=== PATIENT | female | born 1980 | race Two or more races ===

== ENCOUNTER 2020-03-01 03:01 | Emergency (ER) | payer OTHER ==
[~2020-03-01] VITALS: Ht 154.9 cm; Wt 54.5 kg
--- NOTE | 2020-03-01 03:13 | ED.ADGEN ---
General Adult EDM: Chief Complaint: MENSTRUAL PAIN/CRAMPS HPI: HPI: Patient is a 39 year old female coming in via EMS for crampy abdominal pain and vaginal bleeding that started 30 minutes prior to arrival. Patient states the bleeding is the same color and amount is her normal. But says the suprapubic pain is 10 out of 10. Denies any lateralizing abdominal pain. She does not have a history of this severe cramping, last menstrual period 2 months ago. Patient states there is a possibility she could be . Last sexual intercourse 2 days prior to arrival. Denies any vaginal discharge or vaginal pain. Does not take any blood thinners have any bleeding disorders. Does not have any other medical problems. She had a previous miscarriage Patient then admitted that she had been fighting with her all day. Patient states that when they were fighting it made the pain worse. Review of Systems: Review of Systems: All other systems within normal limits except for as noted in the HPI Current Medications: Current Medications Medications (Trade) Dose Ordered Sig/Viridiana Start Time Stop Time Status Last Admin Dose Admin Fentanyl Citrate (Fentanyl 2ml Vial) 75 mcg 1X ONCE 03/01/20 03:15 03/01/20 03:16 DC 03/01/20 03:15 75 MCG Allergies: Allergies: Allergies Coded Allergies Type Severity Reaction Last Updated Verified No Known Drug Allergies 03/01/20 No Physical Exam: PE: Constitutional: Well developed, well nourished, no acute distress, non-toxic appearance. [] HENT: Normocephalic, atraumatic, bilateral external ears normal, nose normal. [] Eyes: PERRLA, conjunctiva normal, no discharge. [] Neck: No rigidity, supple, no stridor. [] Cardiovascular: Regular rate and rhythm, brisk cap refill [] Lungs & Thorax: Non labored symmetric respirations, no tachypnea or respiratory distress [] Abdomen: Soft, nondistended, supra pubic tenderness, no guarding or rebound. No left or right-sided abdominal pain.. Skin: Warm, dry, no erythema, no rash. [] Back: No tenderness, no CVA tenderness. [] Extremities: No deformities, range of motion grossly intact, no lower extremity edema [] Neurologic: Alert and oriented X 3, no focal deficits noted. [] Psychologic: Affect normal, judgement normal, mood normal. [] Current Patient Data: Labs: Laboratory Tests Test 03/01/20 03:15 03/01/20 03:18 Urine Collection Type Unknown Urine Color Red Urine Clarity Turbid Urine pH (<5.0-8.0) Urine Specific [place] 1.025 (1.000-1.030) Urine Protein mg/dL (NEG-TRACE) Urine Glucose (UA) mg/dL (NEG) Urine Ketones (Stick) mg/dL (NEG) Urine Blood (NEG) Urine Nitrite (NEG) Urine Bilirubin (NEG) Urine Urobilinogen Dipstick mg/dL (0.2 mg/dL) Urine Leukocyte Esterase (NEG) Urine RBC Tntc /HPF (0-2) Urine WBC 11-20 /HPF (0-4) Urine Squamous Epithelial Cells Mod /LPF Urine Bacteria Few /HPF (0-FEW) Urine Mucus Mod /LPF POC Urine HCG, Qualitative Hcg positive (Negative) Vital Signs: Vital Signs Date Time Temp Pulse Resp B/P (MAP) Pulse Ox O2 Delivery O2 Flow Rate FiO2 03/01/20 03:21 61 18 115/59 (77) 100 Room Air 03/01/20 03:10 97.6 97.6 EKG: EKG: [] Heart Score: Risk Factors: Risk Factors: DM, Current or recent (<one month) smoker, HTN, HLP, family history of CAD, obesity. Risk Scores: Score 0 - 3: 2.5% MACE over next 6 weeks - Discharge Home Score 4 - 6: 20.3% MACE over next 6 weeks - Admit for Clinical Observation Score 7 - 10: 72.7% MACE over next 6 weeks - Early Invasive Strategies Radiology/Procedures: Radiology/Procedures: [] Course & Med Decision Making: Course & Med Decision Making Pain resolved, talked about patient's emotional stressors and the positive test. Patient states she was working with her because she wants a divorce. So patient threatened miscarriage and pelvic rest. No right or left-sided tenderness , exam and history consistent with SAB. Given return precautions for lateralizing pain, heavy bleeding or lightheadedness. [] Dragon Disclaimer: Dragon Disclaimer: This electronic medical record was generated, in whole or in part, using a voice recognition dictation system. Departure Departure Impression: Primary Impression: Threatened miscarriage in early Disposition: 01 DC HOME SELF CARE/HOMELESS Condition: STABLE Patient Instructions: Threatened Miscarriage Additional Instructions: Tylenol as needed for pain, stay hydrated. Return to emergency department for worsening right or left-sided abdominal pain, bright red heavy bleeding, racing heartbeat, lightheadedness, or passing out [facility] [address] [place] [address] [facility] [address] [place] [address] [facility] CARE [address] [facility] [place] [address] [facility] [address] [place] [address] [facility] [address] [place] [address] [facility] [place] [address] [place] [address] [facility] [place] [address] [place] [address] [facility] [address] [place] [address] [facility] [address] [place] [address] [facility] Department [address] [place] [address] ISACC HARE MD Mar 01, 2020 03:13
[2020-03-01] MEDS ORDERED: fentaNYL PF VIAL 100 MCG/2 ML VIAL IM ONE (03:15)
[2020-03-01 03:24] LABS: CLARITY,URINE TURBID; COLOR,URINE RED
[2020-03-01 03:36] LABS: BACTERIA,URINE FEW /HPF (0-FEW); RBC,URINE TNTC /HPF (0-2)
[2020-03-01 04:24] VITALS: BP 113/66
== END 2020-03-01 04:24 | disposition home or self-care (01) ==
LOC: ER 03:01
DX: O20.0 Threatened abortion (principal); R10.2 Pelvic and perineal pain; Z3A.00 Weeks of gestation of pregnancy not specified
CPT/HCPCS: 81001; 81025; 87077; 87086; 87186; 96372; 99283; J3010